=== PATIENT | male | born 1970 | race African-American/Black ===

== ENCOUNTER 2022-07-17 20:00 | Emergency (ER) | payer MEDICAID, OTHER | END 2022-07-17 21:23 | disposition left against medical advice (07) | LOC: ER 20:00 | DX: M27.2 Inflammatory conditions of jaws (principal); Z53.21 Procedure and treatment not carried out due to patient leaving prior to being seen by health care provider ==

== ENCOUNTER 2022-07-29 20:33 | Emergency (ER) | payer MEDICAID ==
[~2022-07-29] VITALS: Ht 175.3 cm; Wt 99.0 kg
[2022-07-29 20:33] VITALS: BP 127/86
[2022-07-29] MEDS ORDERED: SODIENE35 RE (23:16)
[2022-07-29] MEDS ORDERED: DOCU-94 PO (23:16)
== END 2022-07-29 23:41 | disposition home or self-care (01) ==
LOC: ER 20:39 → EDBD 20:39 → EDUNIT# 20:39 → ER 23:41
DX: K59.00 Constipation, unspecified (principal); I10 Essential (primary) hypertension; E11.9 Type 2 diabetes mellitus without complications; Z88.0 Allergy status to penicillin
CPT/HCPCS: 74176